=== PATIENT | female | born 1930 | race Caucasian/White ===

== ENCOUNTER 2019-04-09 10:30 | Emergency (ER) | payer OTHER ==
--- NOTE | 2019-04-09 10:58 | RAD REPORT ---
EXAM DESCRIPTION: RAD - Chest Single View - 04/09/2019 10:53 am CLINICAL HISTORY: CHEST PAIN Chest pain. COMPARISON: CHEST SINGLE VIEW dated 11/19/2015; CHEST SINGLE VIEW dated 11/18/2015 FINDINGS: Portable technique limits examination quality. Calcified granuloma seen in the left mid lung. The lungs are clear of acute infiltrate. The heart is normal in size. No displaced fractures. IMPRESSION: No acute intrathoracic process suspected.
[2019-04-09 11:41] LABS: Absolute Lymphocytes (CBC) 2.1 K/uL (0.7-4.9); Absolute Monocytes 0.5 K/uL (0.1-1.3); Absolute Neutrophil 4.1 K/uL (1.8-8.0); Basophils % 0.9 % (0-1.3); Eosinophils % 1.9 % (0-4.4); Lymphocytes % 30.9 % (15.3-44.8); Monocytes % 7.5 % (3.3-12.3); RBC Red Blood Cell Count 4.58 M/uL (3.86-4.86)
[2019-04-09] MEDS ORDERED: MAGNE/ALUM HYDROXD 30 ML UCUP ONE (11:43)
[2019-04-09] MEDS ORDERED: LIDOCAINE VISCOUS 2% SOLN 15 ML UDC ONE (11:43)
[2019-04-09 11:45] LABS: ALT/SGPT 28 U/L (12-78); AST/SGOT 23 U/L (15-37); Albumin 3.7 g/dL (3.4-5.0); Alkaline Phosphatase 120 U/L (45-117); BUN Blood Urea Nitrogen 15 mg/dL (7-18); Bicarbonate 25 mmol/L (21-32); Bilirubin Direct < 0.1 mg/dL (0-0.2); Bilirubin Total 0.4 mg/dL (0.2-1.0); Glucose Level 84 mg/dL (74-106); Lipase 217 U/L (73-393); NT PRO-BNP 133 pg/mL (<450); Potassium 3.9 mmol/L (3.5-5.1); Sodium Level 143 mmol/L (136-145); Troponin (Emerg Dept Use Only) < 0.02 ng/mL (0.0-0.045)
--- NOTE | 2019-04-09 14:33 | ER ---
Nurse's Notes [facility] Name: Gladis Yen Age: 89 yrs Sex: Female : 1930 Arrival Date: 04/09/2019 Time: 10:31 Bed 2 Private MD: Ranulfo Valencia Diagnosis: Chest pain, unspecified Presentation: 04/09 10:42 Presenting complaint: Patient states: Sudden onset of chest pain that began while ss waiting in PCP's office for annual check up. Pt reports pain seems to come and go, is currently /10. Transition of care: Dr. Valencia's office. Onset of symptoms was April 09, 2019. Risk Assessment: Do you want to hurt yourself or someone else? Patient reports no desire to harm self or others. Initial Sepsis Screen: Does the patient meet any 2 criteria? No. Patient's initial sepsis screen is negative. Does the patient have a suspected source of infection? No. Patient's initial sepsis screen is negative. Care prior to arrival: None. 10:42 Method Of Arrival: Ambulatory ss 10:42 Acuity: MADAN 3 ss Triage Assessment: 10:45 General: Appears in no apparent distress. comfortable, Behavior is cooperative, bp appropriate for age, anxious. Pain: Complains of pain in chest Pain currently is 1 out of 10 on a pain scale. EENT: No signs and/or symptoms were reported regarding the EENT system. Neuro: Level of Consciousness is awake, alert, obeys commands, Oriented to person, place, time, situation, Appropriate for age. Cardiovascular: Rhythm is sinus rhythm. Respiratory: Airway is patent Respiratory effort is even, unlabored, Respiratory pattern is regular, symmetrical. GI: No signs and/or symptoms were reported involving the gastrointestinal system. : No signs and/or symptoms were reported regarding the genitourinary system. Derm: No deficits noted. Musculoskeletal: Circulation, motion, and sensation intact. Range of motion: intact in all extremities. Historical: - Allergies: 10:44 No Known Allergies; ss - Immunization history:: Adult Immunizations up to date. - Social history:: Smoking status: Patient/guardian denies using tobacco. - Ebola Screening: : Patient denies exposure to infectious person Patient denies travel to an Ebola-affected area in the 21 days before illness onset. - Family history:: not pertinent. - Hospitalizations: : No recent hospitalization is reported. Screenin:45 Abuse screen: Denies threats or abuse. Denies injuries from another. Nutritional bp screening: No deficits noted. Tuberculosis screening: No symptoms or risk factors identified. Fall Risk None identified. Assessment: 10:42 Reassessment: EKG DONE. ss 10:45 General: SEE TRIAGE NOTE. bp 10:45 Pain: Pain does not radiate. Pain began 2-3 days ago. bp 11:39 Reassessment: ALL CURRENT ORDERS COMPLETED, RESULTS PENDING FOR DISPO. bp 12:36 Reassessment: ALL CURRENT ORDERS RESULTED, DISPO PENDING. bp 13:36 Reassessment: REPEAT CARDIAC INDICES DUE AT 1400. NO S/S ACUTE DISTRESS AT THIS TIME. bp 14:54 Reassessment: PT D/C HOME AMBULATORY WITH FAMILY, DX WITH NONSPECIFIC CHEST PAIN. bp Vital Signs: 10:44 BP 190 / 76; Pulse 81; Resp 16; Temp 98.0(O); Pulse Ox 100% on R/A; Weight 52.62 kg; ss Height 4 ft. 11 in. (149.86 cm); Pain 1/10; 11:40 BP 153 / 68; Pulse 62; Resp 14; Pulse Ox 97% ; bp 12:36 BP 144 / 67; Pulse 67; Resp 17; Pulse Ox 97% ; bp 13:37 BP 162 / 65; Pulse 70; Resp 16; Pulse Ox 96% ; bp 14:53 BP 166 / 71; Pulse 74; Resp 15; Temp 98; Pulse Ox 98% ; bp 10:44 Body Mass Index 23.43 (52.62 kg, 149.86 cm) ED Course: 10:31 Patient arrived in ED. dl4 10:31 Ranulfo Valencia MD is Private Physician. dl4 10:32 Pranay Dunn, RN is Primary Nurse. bp 10:34 Isidro Delgado MD is Attending Physician. rn 10:44 Triage completed. ss 10:44 Arm band placed on right wrist. ss 10:45 Patient has correct armband on for positive identification. Placed in gown. Bed in low bp position. Call light in reach. Side rails up X2. artist model on. Pulse ox on. NIBP on. 10:49 EKG done, by access tech. reviewed by Isidro Delgado MD. at1 10:53 XRAY Chest (1 view) In Process Unspecified. EDMS 11:10 Inserted saline lock: 22 gauge in left antecubital area, using aseptic technique. Blood bp collected. Patient maintains SpO2 saturation greater than 95% on room air. 14:09 EKG completed in triage. Results shown to MD. 14:33 Myron Treadwell MD is Referral Physician. rn 14:55 No provider procedures requiring assistance completed. IV discontinued, intact, bp bleeding controlled, No redness/swelling at site. Pressure dressing applied. Administered Medications: 11:00 Drug: GI Cocktail without - (Maalox Suspension 30 ml, Lidocaine Liquid 2 % 15 bp ml) Route: PO; 12:00 Follow up: Response: No adverse reaction bp Outcome: 14:33 Discharge ordered by MD. rn 14:55 Discharged to home ambulatory, with family. bp 14:55 Condition: stable 14:55 Discharge instructions given to patient, family, Instructed on discharge instructions, follow up and referral plans. Demonstrated understanding of instructions, follow-up care. 14:58 Patient left the ED. bp Signatures: Dispatcher [employer] EDMS Isidro Delgado MD MD rn Smirch, Shelby, RN RN ss Fauzia Mahmood, cigar head pegger EKG Tat1 Pranay Dunn RN RN bp Luna, David dl4
--- NOTE | 2019-04-09 14:33 | EDPHYS ---
[facility] Name: Gladis Yen Age: 89 yrs Sex: Female : 1930 Arrival Date: 04/09/2019 Time: 10:31 Bed 2 Private MD: Ranulfo Valencia ED Physician Isidro Delgado HPI: 04/09 10:45 This 89 yrs old Female presents to ER via Ambulatory with complaints of Chest rn Pain. 10:45 The patient or guardian reports chest pain that is located primarily in the substernal rn area. Onset: just prior to arrival. The pain radiates to Associated signs and symptoms: Pertinent positives: diaphoresis, Pertinent negatives: abdominal pain, headache, lower extremity swelling, lightheadedness, near syncope, palpitations, shortness of breath, syncope, vomiting. The chest pain is described as aching. Duration: The patient or guardian reports a single episode, that is still ongoing. Modifying factors: The symptoms are alleviated by nothing. the symptoms are aggravated by nothing. Severity of pain: At its worst the pain was moderate in the emergency department the pain has improved. The patient has not experienced similar symptoms in the past. REports at her PCP office for regular checkup, has been feeling fine, was seated, and began having chest pain, central/left sided, radiates to right ear/neck, states got a little sweaty, no vomiting, no fever/cough/sob. Reports intermittent acid reflux. Denies previous heart attacks or stroke. No hx of dvt/PE, wears compression stockings, and no edema.. Historical: - Allergies: 10:44 No Known Allergies; ss - Immunization history:: Adult Immunizations up to date. - Social history:: Smoking status: Patient/guardian denies using tobacco. - Ebola Screening: : Patient denies exposure to infectious person Patient denies travel to an Ebola-affected area in the 21 days before illness onset. - Family history:: not pertinent. - Hospitalizations: : No recent hospitalization is reported. ROS: 10:45 Constitutional: Negative for fever, chills, and weight loss, Eyes: Negative for injury, rn pain, redness, and discharge, Neck: Negative for injury, and swelling, Cardiovascular: Negative for palpitations, and edema, Respiratory: Negative for shortness of breath, cough, wheezing, and pleuritic chest pain, Abdomen/GI: Negative for abdominal pain, nausea, vomiting, diarrhea, and constipation, MS/Extremity: Negative for injury and deformity, Skin: Negative for injury, rash, and discoloration, Neuro: Negative for headache, weakness, numbness, tingling, and seizure. Exam: 10:43 ECG was reviewed by the Attending Physician. rn 10:45 Constitutional: This is a well developed, well nourished patient who is awake, alert, rn appears anxious Head/Face: Normocephalic, atraumatic. Neck: Trachea midline, no thyromegaly or masses palpated, and no cervical lymphadenopathy. Supple, full range of motion without nuchal rigidity, or vertebral point tenderness. No Meningismus. Cardiovascular: Regular rate and rhythm, no JVD. No pulse deficits. Respiratory: Lungs have equal breath sounds bilaterally, clear to auscultation. No increased work of breathing, no retractions or nasal flaring. Abdomen/GI: soft, non-tender, neg ennis Skin: Warm, dry MS/ Extremity: Pulses equal, no cyanosis. Neurovascular intact. Full, normal range of motion. Equal circumference. Neuro: Awake and alert, GCS 15, oriented to person, place, time, and situation. Cranial nerves II-XII grossly intact. Motor strength 5/5 in all extremities. Sensory grossly intact. Cerebellar exam normal. Normal gait. Vital Signs: 10:44 BP 190 / 76; Pulse 81; Resp 16; Temp 98.0(O); Pulse Ox 100% on R/A; Weight 52.62 kg; ss Height 4 ft. 11 in. (149.86 cm); Pain 1/10; 11:40 BP 153 / 68; Pulse 62; Resp 14; Pulse Ox 97% ; bp 12:36 BP 144 / 67; Pulse 67; Resp 17; Pulse Ox 97% ; bp 13:37 BP 162 / 65; Pulse 70; Resp 16; Pulse Ox 96% ; bp 14:53 BP 166 / 71; Pulse 74; Resp 15; Temp 98; Pulse Ox 98% ; bp 10:44 Body Mass Index 23.43 (52.62 kg, 149.86 cm) ss MDM: 10:34 Patient medically screened. rn 10:59 Test interpretation: by ED physician or midlevel provider: ECG, plain radiologic rn studies, CXR without acute findings or infiltrate. 12:14 ED course: CP resolved, back to baseline without intervention, normal w/u thus far, rn after discussion with patient and family, plan for outpt f/u with Dr. Treadwell for evaluation/stress test is an option as long as repeat trop and ecg remain normal. . 14:31 Differential diagnosis: acute myocardial infarction, anxiety, coronary artery disease rn chest wall pain, esophagitis, gastroesophageal reflux disease (GERD), pericarditis, pleurisy, pneumonia, pneumothorax, stable angina. Data reviewed: vital signs, nurses notes, lab test result(s), EKG, radiologic studies, plain films, and as a result, I will discharge patient. Counseling: I had a detailed discussion with the patient and/or guardian regarding: the historical points, exam findings, and any diagnostic results supporting the discharge/admit diagnosis, lab results, radiology results, the need for outpatient follow up, to return to the emergency department if symptoms worsen or persist or if there are any questions or concerns that arise at home. ED course: Repeat trop negative, ecg unchanged and NSR without ischemic changes, will dc home with cardiology f/u, patient and family prefer this route. Return precautions given and understood.. 04/09 10:40 Order name: Basic Metabolic Panel; Complete Time: 11: rn 04/09 10:40 Order name: CBC with Diff; Complete Time: rn 04/09 10:40 Order name: LFT's; Complete Time: 11: rn 04/09 10:40 Order name: NT PRO-BNP; Complete Time: 11:57 rn 04/09 10:40 Order name: Troponin (emerg Dept Use Only); Complete Time: 11:57 rn 04/09 10:40 Order name: Lipase; Complete Time: 11: rn 04/09 10:40 Order name: XRAY Chest (1 view); Complete Time: 10:59 rn 04/09 10:40 Order name: EKG; Complete Time: 10:41 rn 04/09 10:40 Order name: Cardiac monitoring; Complete Time: 10:42 rn 04/09 10:40 Order name: EKG - Nurse/Tech; Complete Time: 10:42 rn 04/09 10:40 Order name: IV Saline Lock; Complete Time: 11:13 rn 04/09 13:56 Order name: EKG; Complete Time: 13:57 bp 04/09 13:56 Order name: Troponin (emerg Dept Use Only); Complete Time: 14:31 bp 04/09 10:40 Order name: Labs collected and sent; Complete Time: 11:13 rn 04/09 10:40 Order name: O2 Per Protocol; Complete Time: 10:42 rn 04/09 10:40 Order name: O2 Sat Monitoring; Complete Time: 10:42 rn 04/09 13:56 Order name: EKG - Nurse/Tech; Complete Time: 14:14 bp EC:43 Rate is 73 beats/min. Rhythm is regular. QRS [place] is Normal. [place] interval is normal. QRS rn interval is normal. QT interval is normal. No Q waves. T waves are Normal. No ST changes noted. Clinical impression: Normal ECG. Interpreted by me. Reviewed by me. Administered Medications: 11:00 Drug: GI Cocktail without - (Maalox Suspension 30 ml, Lidocaine Liquid 2 % 15 bp ml) Route: PO; 12:00 Follow up: Response: No adverse reaction bp Disposition: 04/09/19 14:33 Discharged to Home. Impression: Chest pain, unspecified. - Condition is Stable. - Discharge Instructions: Nonspecific Chest Pain. - Medication Reconciliation Form, Thank You Letter, Antibiotic Education, Prescription Opioid Use form. - Follow up: Myron Treadwell MD; When: 2 - 3 days; Reason: Recheck today's complaints, Re-evaluation by your physician. - Problem is new. - Symptoms are resolved. Signatures: Dispatcher [employer] EDMS Isidro Delgado MD MD rn Smirch, Shelby, RN RN ss Peltier, Brian, RN RN bp Corrections: (The following items were deleted from the chart) 10:48 10:45 Constitutional: Negative for fever, chills, and weight loss, Eyes: Negative for rn injury, pain, redness, and discharge, Neck: Negative for injury, pain, and swelling, Cardiovascular: Negative for palpitations, and edema, Respiratory: Negative for shortness of breath, cough, wheezing, and pleuritic chest pain, Abdomen/GI: Negative for abdominal pain, nausea, vomiting, diarrhea, and constipation, MS/Extremity: Negative for injury and deformity, Skin: Negative for injury, rash, and discoloration, Neuro: Negative for headache, weakness, numbness, tingling, and seizure, rn 14:58 14:33 04/09/2019 14:33 Discharged to Home. Impression: Chest pain, unspecified. bp Condition is Stable. Forms are Medication Reconciliation Form, Thank You Letter, Antibiotic Education, Prescription Opioid Use. Follow up: Myron Treadwell; When: 2 - 3 days; Reason: Recheck today's complaints, Re-evaluation by your physician. Problem is new. Symptoms are resolved. rn
--- NOTE | 2019-04-09 14:53 | EKG ---
Test Date: 2019-04-09 Test Time: 10:38:48 Recording Studio Setup Worker: GILBERTO MEASUREMENT RESULTS: Intervals: Rate: 73 SD: 138 QRSD: 70 QT: 392 QTc: 431 [place]: P: 58 SD: 138 QRS: 47 T: 46 INTERPRETIVE STATEMENTS: Normal sinus rhythm Normal ECG Compared to ECG 02/12/2017 12:59:50 No significant changes Electronically Signed On 04-09-19 14:52:55 CDT by Jorge Luis Trejo
--- NOTE | 2019-04-09 14:53 | EKG ---
Test Date: 2019-04-09 Test Time: 14:07:48 Enamel Drier: FLORIN MEASUREMENT RESULTS: Intervals: Rate: 69 CT: 140 QRSD: 74 QT: 416 QTc: 445 [place]: P: 67 CT: 140 QRS: 43 T: 52 INTERPRETIVE STATEMENTS: Normal sinus rhythm Normal ECG Compared to ECG 04/09/2019 10:38:48 No significant changes Electronically Signed On 04-09-19 14:52:32 CDT by Jorge Luis Trejo
== END 2019-04-09 14:58 | disposition home or self-care (01) ==
LOC: ER 10:30
DX: R07.9 Chest pain, unspecified (principal)
CPT/HCPCS: 36415; 71045; 80048; 80076; 83690; 83880; 84484; 85025; 93005; 99285